=== PATIENT | male | born 1960 | race Caucasian/White ===

== ENCOUNTER 2021-12-14 08:45 | Inpatient (IN) ==
[2021-12-14 09:47] LABS: Eosinophils % 0.2 %
[2021-12-14 09:49] LABS: Basophils % 0.3 %; Immature Granulocytes % 0.5 % (0-4); Lymphocytes # 1.8 K/mcL (0.6-4.6); Lymphocytes % 17.4 %; Mean Corpuscular Hemoglobin 30.6 pg (28.0-33.3); Mean Corpuscular Volume 109.1 fL (83.0-100.0); Mean Platelet Volume 11.3 fL (9.4-12.4); Monocytes % 9.7 %; Neutrophils # 7.5 K/mcL (1.6-8.9); Nucleated Red Blood Cells 0.6 /100 WBC (0); Platelet Count 139 K/mcL (140-400); Red Blood Count 1.21 M/mcL (4.19-5.50); Red Cell Distribution Width 16.8 % (11.5-14.5); Segmented Neutrophils % 71.9 %; White Blood Count 10.4 K/mcL (4.3-11.1)
[2021-12-14 10:06] LABS: Hematocrit 13.2 % (37.5-50.1); Hemoglobin 3.7 g/dL (12.9-16.9)
[2021-12-14 10:09] LABS: Albumin 2.8 g/dL (3.5-5.7); Albumin/Globulin Ratio 0.7 (1.1-2.2); Bilirubin,Direct 0.9 mg/dL (0.0-0.2); Bilirubin,Indirect 1.7 mg/dL (0.0-1.0); Bilirubin,Total 2.6 mg/dL (0.3-1.0); Calcium 8.3 mg/dL (8.6-10.3); Globulin 4.1 g/dL (2.4-3.5); Potassium 4.2 mEq/L (3.5-5.1); Total Protein 6.9 g/dL (6.4-8.9); Troponin I 1.18 ng/mL (< 0.04)
[2021-12-14] MEDS ORDERED: Naloxone 0.4 MG/ML INJ IVP PRN (10:58)
[2021-12-14] MEDS ORDERED: 0.9 % Sodium Chloride 250 ML ONE ×3 (10:59→22:36)
[2021-12-14 11:09] LABS: Anisocytosis 2+ (Not Present); Hypochromasia Present (Not Present); Microcytosis Present (Not Present); Platelet Estimate Slight Decrease (Normal)
[2021-12-14] MEDS: 0.9 % Sodium Chloride 1,000 ML IVC SCH ×2 (12:31→20:10)
[2021-12-14] MEDS: Pantoprazole 40 MG VIAL IVP SCH ×2 (12:31→20:09)
[2021-12-14] MEDS: cefTRIAXone 2,000 MG in 0.9 % Sodium Chloride 20 ML IVP SCH (12:31)
[2021-12-14] MEDS: Octreotide 400 MCG in 0.9 % Sodium Chloride 100 ML IVC SCH (12:33)
[2021-12-14] MEDS ORDERED: *HR* Propofol 200 MG/20 ML VIAL IVP ONE (14:00)
[2021-12-14] MEDS ORDERED: traZODone 50 MG TABLET PO PRN (20:20)
[2021-12-14 20:58] LABS: RBC,Pleural Fluid < 2000 RBC/mcL
[2021-12-14 21:04] LABS: Hematocrit 17.7 % (37.5-50.1)
[2021-12-14 21:09] LABS: Hemoglobin 5.3 g/dL (12.9-16.9)
[2021-12-14 21:45] LABS: Appearance of Pleural Fl Clear (Clear)
[2021-12-14 21:50] LABS: Basophils,Pleural Fluid 0 %; Eosinophils,Pleural Fluid 0 %
[2021-12-15 03:54] LABS: Calcium 5.6 mg/dL (8.6-10.3); Potassium 3.5 mEq/L (3.5-5.1)
[2021-12-15 04:02] LABS: Basophils % 0.4 %; Mean Corpuscular Volume 101.9 fL (83.0-100.0); Mean Platelet Volume 10.7 fL (9.4-12.4); Segmented Neutrophils % 66.8 %
[2021-12-15 04:04] LABS: Eosinophils % 0.4 %; Hematocrit 16.3 % (37.5-50.1); Immature Granulocytes % 0.1 % (0-4); Immature Platelets 3.7 % (1.1-6.1); Lymphocytes # 1.5 K/mcL (0.6-4.6); Mean Corpuscular HGB Conc 30.1 g/dL (31.6-35.5); Mean Corpuscular Hemoglobin 30.6 pg (28.0-33.3); Monocytes # 0.7 K/mcL (0.0-1.3); Monocytes % 10.3 %; Neutrophils # 4.6 K/mcL (1.6-8.9); Nucleated Red Blood Cells 0.3 /100 WBC (0); Red Cell Distribution Width 19.9 % (11.5-14.5); White Blood Count 6.9 K/mcL (4.3-11.1)
[2021-12-15 04:12] LABS: Platelet Count 72 K/mcL (140-400)
[2021-12-15 04:14] LABS: Hemoglobin 4.9 g/dL (12.9-16.9)
[2021-12-15] MEDS ORDERED: 0.9 % Sodium Chloride 250 ML ONE ×3 (04:39→07:48)
[2021-12-15] MEDS: Calcium Gluconate 1gm/50mL 1 GM/50 ML BAG IVPB SCH ×2 (04:53→06:00)
[2021-12-15 05:08] LABS: Magnesium 1.8 mg/dL (1.6-2.6)
[2021-12-15] MEDS: Pantoprazole 40 MG in 0.9 % Sodium Chloride Mini Bag 100 ML IVC SCH ×3 (05:25→21:10)
[2021-12-15] MEDS: Octreotide 400 MCG in 0.9 % Sodium Chloride 100 ML IVC SCH ×2 (05:25→22:58)
[2021-12-15 05:40] LABS: Immature Reticulocyte % 39.8 % (11.0-38.0); Retculocyte # 0.07 M/mcL (0.05-0.10)
[2021-12-15 06:19] LABS: Bacteria,Urine Few per hpf (None-Few); Bilirubin,Urine Negative (Negative); Blood,Urine Negative (Negative); Clarity,Urine Clear (Clear); Color,Urine Yellow (Yellow); Glucose,Urine (UA) Normal (Normal); Hyaline Casts,Urine Many per lpf (None Seen); Ketones,Urine Trace mg/dL (Negative); Leukocyte Esterase,Urine Negative (Negative); Mucus,Urine Few per lpf (None-Few); Nitrite,Urine Negative (Negative); PH,Urine 5.5 pH Units (5.0-8.0); Protein,Urine 70 mg/dL (Neg-Trace); RBC,Urine 0-3 per hpf (0-3); Specific Gravity,Urine 1.019 (1.010-1.025); Squamous Epithelial Cell,Urine Few per hpf (None-Few); Urobilinogen,Urine Normal (Normal); WBC,Urine 0-3 per hpf (0-3)
[2021-12-15] MEDS: cefTRIAXone 2,000 MG in 0.9 % Sodium Chloride 20 ML IVP SCH (07:59)
[2021-12-15] MEDS ORDERED: Calcium Gluconate 1gm/50mL 1 GM/50 ML BAG IVPB ONE (10:55)
[2021-12-15 13:21] LABS: Basophils % 0.5 %; Eosinophils % 0.3 %; Hematocrit 21.2 % (37.5-50.1); Immature Granulocytes % 0.7 % (0-4); Lymphocytes # 1.4 K/mcL (0.6-4.6); Lymphocytes % 18.3 %; Mean Corpuscular HGB Conc 31.6 g/dL (31.6-35.5); Mean Corpuscular Hemoglobin 31.5 pg (28.0-33.3); Mean Corpuscular Volume 99.5 fL (83.0-100.0); Mean Platelet Volume 10.9 fL (9.4-12.4); Monocytes # 0.7 K/mcL (0.0-1.3); Monocytes % 9.9 %; Neutrophils # 5.2 K/mcL (1.6-8.9); Nucleated Red Blood Cells 0.4 /100 WBC (0); Red Blood Count 2.13 M/mcL (4.19-5.50); Red Cell Distribution Width 19.6 % (11.5-14.5); Segmented Neutrophils % 70.3 %; White Blood Count 7.4 K/mcL (4.3-11.1)
[2021-12-15 13:22] LABS: Hemoglobin 6.7 g/dL (12.9-16.9); Platelet Count 80 K/mcL (140-400)
[2021-12-15 13:31] LABS: INR 1.5; Prothrombin Time 17.2 Seconds (9.4-12.1)
[2021-12-15 13:35] LABS: Albumin 2.7 g/dL (3.5-5.7); Albumin/Globulin Ratio 0.6 (1.1-2.2); Bilirubin,Direct 1.3 mg/dL (0.0-0.2); Bilirubin,Indirect 2.3 mg/dL (0.0-1.0); Bilirubin,Total 3.6 mg/dL (0.3-1.0); Globulin 4.3 g/dL (2.4-3.5); Potassium 3.9 mEq/L (3.5-5.1)
[2021-12-15 14:04] LABS: Folate > 22.3 ng/mL (3.0-16.0); Vitamin B12 > 1500 pg/mL (250-1100)
[2021-12-15] MEDS: Thiamine (B-1) 100 MG TABLET PO SCH (16:48)
[2021-12-15] MEDS: Renal Vitamin 1 CAP CAPSULE PO SCH (16:48)
[2021-12-15] MEDS ORDERED: 0.9 % Sodium Chloride 250 ML IVC SCH (18:45)
[2021-12-16] MEDS: Pantoprazole 40 MG in 0.9 % Sodium Chloride Mini Bag 100 ML IVC SCH ×5 (01:56→22:51)
[2021-12-16] MEDS: Neosporin OINT 15 GM TUBE TP SCH ×3 (04:16→20:39)
[2021-12-16 04:58] LABS: Basophils % 0.5 %; Eosinophils # 0.1 K/mcL (0.0-0.6); Hematocrit 22.1 % (37.5-50.1); Hemoglobin 7.1 g/dL (12.9-16.9); Immature Granulocytes % 0.6 % (0-4); Immature Platelets 3.9 % (1.1-6.1); Lymphocytes # 1.6 K/mcL (0.6-4.6); Lymphocytes % 25.3 %; Mean Corpuscular HGB Conc 32.1 g/dL (31.6-35.5); Mean Corpuscular Volume 96.5 fL (83.0-100.0); Mean Platelet Volume 10.5 fL (9.4-12.4); Monocytes # 0.6 K/mcL (0.0-1.3); Monocytes % 9.5 %; Nucleated Red Blood Cells 0.3 /100 WBC (0); Red Blood Count 2.29 M/mcL (4.19-5.50); Red Cell Distribution Width 20.1 % (11.5-14.5); Segmented Neutrophils % 63.1 %; White Blood Count 6.3 K/mcL (4.3-11.1)
[2021-12-16 04:59] LABS: Platelet Count 72 K/mcL (140-400)
[2021-12-16 05:01] LABS: Albumin 2.5 g/dL (3.5-5.7); Albumin/Globulin Ratio 0.6 (1.1-2.2); Bilirubin,Direct 1.1 mg/dL (0.0-0.2); Bilirubin,Indirect 2.4 mg/dL (0.0-1.0); Bilirubin,Total 3.5 mg/dL (0.3-1.0); Calcium 7.8 mg/dL (8.6-10.3); Globulin 3.9 g/dL (2.4-3.5); Potassium 3.8 mEq/L (3.5-5.1); Total Protein 6.4 g/dL (6.4-8.9)
[2021-12-16] MEDS: Thiamine (B-1) 100 MG TABLET PO SCH (09:23)
[2021-12-16] MEDS: Renal Vitamin 1 CAP CAPSULE PO SCH (09:23)
[2021-12-16] MEDS: cefTRIAXone 2,000 MG in 0.9 % Sodium Chloride 20 ML IVP SCH (09:24)
[2021-12-16] MEDS: predniSONE 20 MG TABLET PO SCH ×2 (11:44→20:38)
[2021-12-16] MEDS: Octreotide 400 MCG in 0.9 % Sodium Chloride 100 ML IVC SCH (16:07)
[2021-12-16] MEDS: Saline Nasal Spray 44 ML BOTTLE NS PRN ×2 (17:17→22:50)
[2021-12-16 17:49] LABS: Hematocrit 23.9 % (37.5-50.1); Hemoglobin 7.5 g/dL (12.9-16.9)
[2021-12-17] MEDS: Pantoprazole 40 MG in 0.9 % Sodium Chloride Mini Bag 100 ML IVC SCH ×3 (04:00→12:53)
[2021-12-17 04:20] LABS: Hematocrit 23.3 % (37.5-50.1); Nucleated Red Blood Cells 0.4 /100 WBC (0)
[2021-12-17 04:22] LABS: Hemoglobin 7.2 g/dL (12.9-16.9); Immature Granulocytes % 1.3 % (0-4); Immature Platelets 3.2 % (1.1-6.1); Lymphocytes # 0.6 K/mcL (0.6-4.6); Lymphocytes % 11.3 %; Mean Corpuscular HGB Conc 30.9 g/dL (31.6-35.5); Mean Corpuscular Hemoglobin 30.8 pg (28.0-33.3); Mean Corpuscular Volume 99.6 fL (83.0-100.0); Mean Platelet Volume 10.6 fL (9.4-12.4); Monocytes # 0.3 K/mcL (0.0-1.3); Neutrophils # 4.5 K/mcL (1.6-8.9); Red Blood Count 2.34 M/mcL (4.19-5.50); Red Cell Distribution Width 20.2 % (11.5-14.5); Segmented Neutrophils % 82.4 %; White Blood Count 5.4 K/mcL (4.3-11.1)
[2021-12-17 04:24] LABS: Platelet Count 69 K/mcL (140-400)
[2021-12-17 04:37] LABS: Albumin 2.5 g/dL (3.5-5.7); Albumin/Globulin Ratio 0.7 (1.1-2.2); Bilirubin,Direct 0.8 mg/dL (0.0-0.2); Bilirubin,Indirect 1.2 mg/dL (0.0-1.0); Calcium 7.7 mg/dL (8.6-10.3); Globulin 3.8 g/dL (2.4-3.5); Potassium 4.6 mEq/L (3.5-5.1); Total Protein 6.3 g/dL (6.4-8.9)
[2021-12-17] MEDS: Thiamine (B-1) 100 MG TABLET PO SCH (07:48)
[2021-12-17] MEDS: predniSONE 20 MG TABLET PO SCH ×2 (07:48→21:33)
[2021-12-17] MEDS: Renal Vitamin 1 CAP CAPSULE PO SCH (07:48)
[2021-12-17] MEDS: cefTRIAXone 2,000 MG in 0.9 % Sodium Chloride 20 ML IVP SCH (07:48)
[2021-12-17] MEDS: Neosporin OINT 15 GM TUBE TP SCH ×2 (07:49→21:33)
[2021-12-17] MEDS: Octreotide 400 MCG in 0.9 % Sodium Chloride 100 ML IVC SCH (08:45)
[2021-12-17] MEDS: Saline Nasal Spray 44 ML BOTTLE NS PRN (09:27)
[2021-12-17] MEDS ORDERED: Gadolinium Contrast Agent (WT Based) IV PRN (14:56)
[2021-12-17] MEDS ORDERED: GADOBUTROL 30 MMOL/30 ML VIAL IVP ONE (16:53)
[2021-12-18 03:55] VITALS: TEMP 97.8
[2021-12-18 05:23] LABS: Hematocrit 26.4 % (37.5-50.1); Mean Corpuscular HGB Conc 30.3 g/dL (31.6-35.5); Mean Platelet Volume 11.2 fL (9.4-12.4)
[2021-12-18 05:25] LABS: Immature Granulocytes % 0.6 % (0-4); Immature Platelets 3.8 % (1.1-6.1); Lymphocytes # 0.7 K/mcL (0.6-4.6); Lymphocytes % 8.4 %; Mean Corpuscular Hemoglobin 31.1 pg (28.0-33.3); Mean Corpuscular Volume 102.7 fL (83.0-100.0); Monocytes # 0.6 K/mcL (0.0-1.3); Monocytes % 7.1 %; Neutrophils # 7.4 K/mcL (1.6-8.9); Red Blood Count 2.57 M/mcL (4.19-5.50); Red Cell Distribution Width 20.9 % (11.5-14.5); Segmented Neutrophils % 83.9 %; White Blood Count 8.8 K/mcL (4.3-11.1)
[2021-12-18 05:26] LABS: Platelet Count 88 K/mcL (140-400)
[2021-12-18 05:36] LABS: Calcium 8.2 mg/dL (8.6-10.3); Potassium 4.2 mEq/L (3.5-5.1)
[2021-12-18 07:32] VITALS: BP 164/65; O2SAT 96
[2021-12-18] MEDS: predniSONE 20 MG TABLET PO SCH (08:12)
[2021-12-18] MEDS: Renal Vitamin 1 CAP CAPSULE PO SCH (08:12)
[2021-12-18] MEDS: Thiamine (B-1) 100 MG TABLET PO SCH (08:12)
[2021-12-18] MEDS: cefTRIAXone 2,000 MG in 0.9 % Sodium Chloride 20 ML IVP SCH (08:13)
[2021-12-18 08:37] VITALS: PULSE 70
[2021-12-18] MEDS: Neosporin OINT 15 GM TUBE TP SCH (08:40)
[2021-12-19 02:10] LABS: FACV Specimen WHOLE BLOOD
[2021-12-19 07:15] LABS: Fac V Leiden R506Q Mut Result NEGATIVE
== END 2021-12-18 11:25 | disposition home or self-care (01) | DRG 280 ==
LOC: EMEROOARM 08:45 → SUATTDRO 16:50 → 2NNU 16:50
PROVIDERS: ADMIT Internal Medicine; ATTEND Internal Medicine